=== PATIENT | female | born 1960 | race Caucasian/White ===

== ENCOUNTER → 2023-12-03 12:05 | Outpatient (REF) | payer MEDICARE, BC, SELFPAY | LOC: RAD 12:05 | PROVIDERS: ATTENDING PHYSICIAN Nurse Practitioner Primary Care | DX: J40 Bronchitis, not specified as acute or chronic (principal); J45.31 Mild persistent asthma with (acute) exacerbation | CPT/HCPCS: 71046 ==

== ENCOUNTER → 2023-12-07 08:12 | Outpatient (REF) | payer MEDICARE, BC, SELFPAY | LOC: RAD 08:12 | PROVIDERS: ATTENDING PHYSICIAN Nurse Practitioner Primary Care; REFERRING PHYSICIAN Otolaryngology Facial Plastic Surgery | DX: J30.89 Other allergic rhinitis (principal); J32.0 Chronic maxillary sinusitis; B02.29 Other postherpetic nervous system involvement | CPT/HCPCS: 70486 ==

== ENCOUNTER → 2023-12-22 08:46 | Outpatient (REF) | payer MEDICARE, BC, SELFPAY | LOC: MRI 3T 08:46 | PROVIDERS: ATTENDING PHYSICIAN Physician Assistant Surgical; FAMILY PHYSICIAN Nurse Practitioner Primary Care | DX: M79.671 Pain in right foot (principal) | CPT/HCPCS: 73718 ==

== ENCOUNTER → 2023-12-25 13:42 | Outpatient (REF) | payer MEDICARE, BC, SELFPAY | LOC: RAD 13:42 | PROVIDERS: ATTENDING PHYSICIAN Nurse Practitioner Primary Care | DX: J45.30 Mild persistent asthma, uncomplicated (principal); F17.210 Nicotine dependence, cigarettes, uncomplicated; M06.9 Rheumatoid arthritis, unspecified; M35.01 Sjogren syndrome with keratoconjunctivitis; R05.3 Chronic cough | CPT/HCPCS: 71260; Q9967 ==

== ENCOUNTER → 2024-03-12 10:40 | Outpatient (REF) | payer MEDICARE, BC, SELFPAY ==
[2024-03-12 15:23] LABS: ALT (SGPT) 35 U/L (0-35); AST (SGOT) 27 U/L (14-36); Albumin 4.7 g/dl (3.5-5.0); Alkaline Phosphatase 72 U/L (38-126); Blood Urea Nitrogen 14 mg/dl (7-17); Calcium 9.7 mg/dl (8.4-10.2); Carbon Dioxide 27 mmol/L (22-30); Chloride 103 mmol/L (98-107); Glucose 112 mg/dl (70-99); HDL Cholesterol 62 mg/dl; LDL Cholesterol, Calculated 69 mg/dl; Potassium 4.6 mmol/L (3.5-5.1); Sodium 142 mmol/L (135-145); Total Bilirubin 0.3 mg/dl (0.2-1.3); Total Cholesterol 151 mg/dl (50-199); Total Protein 7.2 g/dl (6.3-8.2); Triglyceride 100 mg/dl (10-149); Very Low Density Lipoprotein 20 mg/dl (0-30); eGFR > 60.00
[2024-03-12 15:35] LABS: % Basophils 0.5 % (0-2); % Eosinophils 0.3 % (0-6); % Immature Granulocytes 0.1 % (0-0.5); % Lymphocytes 30.9 % (20.5-51.1); % Monocytes 6.8 % (1.7-9.3); % Neutrophils 61.4 % (42.2-75.2); Absolute Lymphocytes 2.3 10^3/uL (1.2-3.4); Absolute Monocytes 0.5 10^3/uL (0.1-0.6); Absolute Neutrophils 4.5 10^3/uL (1.4-6.5); Hematocrit 39.6 % (37.0-47.0); Hemoglobin 13.9 g/dL (12.0-16.0); Mean Corp Hgb Conc. 35.1 g/dL (33.0-37.0); Mean Corpuscular Hgb 31.9 pg (27.0-31.0); Mean Corpuscular Volume 90.8 fL (81.0-99.0); Mean Platelet Volume 10.1 fL (7.4-10.4); Nucleated Red Blood Cells % 0 %; Platelet Count 234 10^3/uL (130-400); Red Blood Cell Count 4.36 10^6/uL (4.20-5.40); Red Cell Dist. Width 11.9 % (11.5-14.5); White Blood Cell Count 7.3 10^3/uL (4.8-10.8)
[2024-03-12 15:38] LABS: Vitamin D, 25-OH*** 46.7 ng/mL (30-80)
[2024-03-12 15:51] LABS: TSH Reflex To Free T4 0.59 uIU/ml (0.47-4.68)
[2024-03-13 10:07] LABS: Glycohemoglobin (HgbA1c) 6.1 % (4.0-5.6)
== END ==
LOC: HWLAB 10:40
PROVIDERS: ATTENDING PHYSICIAN Otolaryngology Otolaryngology/Facial Plastic Surgery; FAMILY PHYSICIAN Nurse Practitioner Primary Care
DX: Z01.818 Encounter for other preprocedural examination (principal); E11.65 Type 2 diabetes mellitus with hyperglycemia; E78.2 Mixed hyperlipidemia; E55.9 Vitamin D deficiency, unspecified; E03.8 Other specified hypothyroidism; J30.89 Other allergic rhinitis
CPT/HCPCS: 36415; 80053; 80061; 82306; 83036; 84443; 85025; 93005

== ENCOUNTER 2024-04-09 14:45 | Emergency (ER) | payer MEDICARE, BC, SELFPAY ==
[2024-04-09] VITALS (7 sets, daily range): BP systolic 120–134; BP diastolic 63–78; BMI 26.5
--- NOTE | 2024-04-09 15:29 | ED.GENMED ---
History of Present Illness
General
Chief Complaint: Abdominal Symptoms
Source: patient
Exam Limitations: none
Time Seen by Provider: 04/09/24 15:02
Nursing documentation reviewed up to this point in time: agreed with
History of Present Illness
History of Present Illness:
Patient to ED with complaint of diffuse abd. pain, R>L, constipation. States she takes Mag.Citrate and fiber daily since being placed on Monjero months ago. States she has not had a BM in 4 days despite taking extra doses. Gave self fleets this
AM, no results, no even liquid from enema. Advised by PCP to come to ED. Denies fever/chills, recent illness. No vomiting, +nausea. No history of obstructions. Brought to ED by spouse for eval
Past History
Past History
ED Past Medical History: Asthma, Cancer (Cervical cancer), Hypercholesterolemia, NIDDM, Psychiatric (Anxiety) and Other (Neuropathy, sciatica)
ED Past Surgical History: Appendectomy, , Gynecological (Hysterectomy) and Other (Vein stripping)
Social History
Tobacco: Non-smoker
Alcohol: Occasional
Personal:
Living: with family
Employment: Not employed (Homemaker)
Family History
Family History: Other (Noncontributory)
Review of Systems
Review of Systems
Allergies reviewed?: Yes
All Other Systems: ROS reviewed and negative except as documented in HPI and ROS
Constitutional: Reports no symptoms
EENT: Reports no symptoms
Respiratory: Reports no symptoms
ABD/GI: Reports abdominal pain (diffuse), nausea and constipated
: Reports no symptoms
Musculoskeletal: Reports no symptoms
Skin: Reports no symptoms
Neurological: Reports no symptoms
Psychiatric: Reports no symptoms
Phy Exam
General Physical Exam
General Presentation: well appearing and no apparent distress
General age: appears stated age
General Skin: warm and dry
General Habitus: normal
General Mental: alert
Cardiovascular Exam
Cardiovascular Exam: regular rate/rhythm
Gastrointestinal Exam
Gastrointestinal Exam: soft and no organomegaly
Palpation: generalized: Moderate tenderness
Musculoskeletal Exam
Musculoskeletal Exam: full ROM and neuro vasc intact
Skin Exam
Skin Exam: normal color, warm/dry and no rash
Psychiatric Exam
Psychiatric Exam: normal mood/affect
Course
Orders/Labs/Results
Orders:
Orders
04/09/24 15:28
Abdomen Xray - 1 View [CR Abdomen - 1 View] Urgent
Comment:
Reason For Exam: diffuse pain, constipation
04/09/24 17:23
Complete Blood Count/With Diff Urgent
Comprehensive Metabolic Panel Urgent
Lipase Urgent
Urinalysis Reflex To Culture Urgent
Date Specimen was Collected: 04/09/24
Time Specimen was Collected: 17:10
04/09/24 18:11
CT Abd/pel (oral only)-DH Only Urgent
Comment: pt allergic to iodine, scan oral only per Angelica
Reason For Exam: diffuse abd. pain
Iohexol [Omnipaque] See Protocol PO NOW STA
04/09/24 21:56
Bisacodyl [Dulcolax] 10 mg PO NOW STA
Bisacodyl [Dulcolax] 10 mg PO NOW STA
Abnormal Lab Results
04/09/24
17:23
MCH 31.1 H pg
(27.0-31.0)
Glucose 137 H mg/dl
(70-99)
ALT 37 H U/L
(0-35)
04/09/24 17:23
04/09/24 17:23
Vital Signs
Initial and Last Documented VS:
Initial Vital Signs
Temp Pulse Resp BP Pulse Ox
98.5 F 95 18 126/78 99
04/09/24 14:54 04/09/24 14:54 04/09/24 14:54 04/09/24 14:54 04/09/24 14:54
Last Documented Vital Signs
Temp Pulse Resp BP Pulse Ox
98.5 F 69 18 134/78 99
04/09/24 14:54 04/09/24 22:30 04/09/24 20:00 04/09/24 22:30 04/09/24 22:30
*Radiology
Radiology exam reviewed: radiology read reviewed
*Pulse Oximetry
Patient hypoxic: no
*Critical Care Note
Total Time (30-74mins, 75-104mins- exclusive of procedures): Not Applicable
Update Note
Update Note:
Patient to ED with complaint of abdominal discomfort, feeling of constipation. No BM x 4 days. Takes mag citrate and fiber daily and has been doing so for months, since starting monjero. Afebrile. No n/v. Labs reviewed, no concerning findings.
CT of abdomen shows mild diffuse stoolburden/constipation. Will give dulcolax PO now and repeat in AM. Discharge home with instructions to f/u with PCP.
ED Attending Note
-
Portions of this chart may have been created with voice recognition software.� Occasional wrong word or��sound alike� substitutions may have occurred due to the inherent limitations of voice recognition software.
Discharge Plan
Departure
Patient Disposition: Home (Routine Discharge)
Date of Disposition: 04/09/24
Time of Disposition: 21:57
Patient with high blood pressure during this ER visit?: No
Condition: Good
Covid-19: Not Applicable
Discharge Problem:
Constipation
Instructions: Constipation, Adult (DC), Abdominal Pain
Prescriptions:
No Action
diclofenac sodium 75 mg tablet,delayed release (DR/EC)
75 mg PO BID PRN (Reason: pain) Qty: 30 0RF
Referrals:
Ivis Steen CRNP [Family Provider] -
Activity Restrictions/Additional Instructions:
Return to the emergency department for any changes in/worsening of your symptoms
Interventions
Interventions:
*Risk Screen - Suicide Last Done: 04/09/24 15:00
*General Assessment Last Done: 04/09/24 15:37
*Neglect/Abuse Screening Last Done: 04/09/24 15:37
ED- Fall Risk Assessment Last Done: 04/09/24 15:37
*ED COVID-19 Vaccine History Last Done: 04/09/24 15:37
*Nursing Disposition Last Done: 04/09/24 22:33
JE-Efiezf-Nukknvaiwg Assessment Last Done: 04/09/24 15:37
Discharge Date and Time
Discharge Date/Time: 04/09/24 22:39
Print Language: PASHTO
--- NOTE | 2024-04-09 17:28 | EDRN ---
Pt states pain is increasing more often at this time from 6-10/10 w/ increased cramping.
[2024-04-09 17:35] LABS: Urine Albumin Negative (Neg - Trace); Urine Bilirubin Negative (Negative); Urine Character Clear (Clear); Urine Color Straw; Urine Glucose Negative (Negative); Urine Ketone Negative (Negative); Urine Leukocyte Negative (Negative); Urine Nitrite Negative (Negative); Urine Occult Blood Negative (Negative); Urine Specific Gravity 1.015 (<1.030); Urine Urobilinogen Negative (Neg - 1+)
[2024-04-09 17:36] LABS: % Basophils 0.5 % (0-2); % Eosinophils 0.3 % (0-6); % Immature Granulocytes 0.2 % (0-0.5); % Monocytes 5.9 % (1.7-9.3); % Neutrophils 59.1 % (42.2-75.2); Absolute Lymphocytes 2.9 10^3/uL (1.2-3.4); Absolute Monocytes 0.5 10^3/uL (0.1-0.6); Absolute Neutrophils 5.1 10^3/uL (1.4-6.5); Hematocrit 38.7 % (37.0-47.0); Hemoglobin 13.3 g/dL (12.0-16.0); Mean Corp Hgb Conc. 34.4 g/dL (33.0-37.0); Mean Corpuscular Hgb 31.1 pg (27.0-31.0); Mean Corpuscular Volume 90.6 fL (81.0-99.0); Mean Platelet Volume 8.8 fL (7.4-10.4); Nucleated Red Blood Cells % 0 %; Platelet Count 303 10^3/uL (130-400); Red Blood Cell Count 4.27 10^6/uL (4.20-5.40); Red Cell Dist. Width 11.9 % (11.5-14.5); White Blood Cell Count 8.6 10^3/uL (4.8-10.8)
[2024-04-09 17:48] LABS: ALT (SGPT) 37 U/L (0-35); AST (SGOT) 26 U/L (14-36); Albumin 4.6 g/dl (3.5-5.0); Alkaline Phosphatase 80 U/L (38-126); Blood Urea Nitrogen 16 mg/dl (7-17); Calcium 9.9 mg/dl (8.4-10.2); Carbon Dioxide 27 mmol/L (22-30); Chloride 101 mmol/L (98-107); Estimated Creatinine Clearance 92 ml/min; Glucose 137 mg/dl (70-99); Lipase 121 U/L (23-300); Sodium 139 mmol/L (135-145); Total Bilirubin 0.4 mg/dl (0.2-1.3); eGFR > 60.00
[2024-04-09] MEDS: OMNIPAQUE 50 ML PO (18:50)
--- NOTE | 2024-04-09 19:04 | EDRN ---
1800 documentation of vital signs and update done by Clifford Magallon RN.
[2024-04-09] MEDS: DULCOLAX 10 MG PO ×2 (22:07→22:08)
== END 2024-04-09 22:39 | disposition home or self-care (01) ==
LOC: EMR 14:45
PROVIDERS: Nurse Practitioner; EMERGENCY PHYSICIAN Emergency Medicine; FAMILY PHYSICIAN Nurse Practitioner Primary Care
DX: K59.00 Constipation, unspecified (principal); R10.84 Generalized abdominal pain; J45.909 Unspecified asthma, uncomplicated; E78.00 Pure hypercholesterolemia, unspecified; E11.9 Type 2 diabetes mellitus without complications; Z85.41 Personal history of malignant neoplasm of cervix uteri; Z90.49 Acquired absence of other specified parts of digestive tract; Z90.710 Acquired absence of both cervix and uterus
CPT/HCPCS: 99284; 74018; 74176; 80053; 81003; 83690; 85025

== ENCOUNTER 2024-04-10 12:37 | Emergency (ER) | payer MEDICARE, BC, SELFPAY ==
[2024-04-10] VITALS (7 sets, daily range): BP systolic 110–130; BP diastolic 61–72; BMI 26.3
--- NOTE | 2024-04-10 15:50 | ED.GENMED ---
History of Present Illness
General
Chief Complaint: Bowel Problem
Time Seen by Provider: 04/10/24 15:25
Past History
Past History
ED Past Medical History: Asthma, Cancer (Cervical cancer), Hypercholesterolemia, NIDDM, Psychiatric (Anxiety) and Other (Neuropathy, sciatica)
ED Past Surgical History: Appendectomy, , Gynecological (Hysterectomy) and Other (Vein stripping)
Social History
Tobacco: Non-smoker
Alcohol: Occasional
Personal:
Living: with family
Employment: Not employed (Homemaker)
Family History
Family History: Other (Noncontributory)
Course
Vital Signs
Initial and Last Documented VS:
Initial Vital Signs
Temp Pulse Resp BP Pulse Ox
36.9 C 111 20 115/72 98
04/10/24 12:38 04/10/24 12:38 04/10/24 12:38 04/10/24 12:38 04/10/24 12:38
Last Documented Vital Signs
Temp Pulse Resp BP Pulse Ox
36.9 C 82 18 110/67 100
04/10/24 12:38 04/10/24 15:07 04/10/24 15:07 04/10/24 15:06 04/10/24 15:15
ED Attending Note
-
Portions of this chart may have been created with voice recognition software.� Occasional wrong word or��sound alike� substitutions may have occurred due to the inherent limitations of voice recognition software.
Discharge Plan
Departure
Prescriptions:
No Action
diclofenac sodium 75 mg tablet,delayed release (DR/EC)
75 mg PO BID PRN (Reason: pain) Qty: 30 0RF
Referrals:
Ivis Steen CRNP [Family Provider] -
Interventions
Interventions:
*Risk Screen - Suicide Last Done: 04/10/24 15:04
*General Assessment Last Done: 04/10/24 12:38
*Neglect/Abuse Screening Last Done: 04/10/24 15:04
ED- Fall Risk Assessment Last Done: 04/10/24 15:07
*ED COVID-19 Vaccine History Last Done: 04/10/24 15:04
DY-Llcazw-Xkmxhjrghn Assessment Last Done: 04/10/24 15:04
Discharge Date and Time
Print Language: BENGALI
--- NOTE | 2024-04-10 16:04 | ED.GENMED ---
History of Present Illness
<Geovani Larios, DO - Last Filed: 04/10/24 16:08>
General
Chief Complaint: Bowel Problem
Time Seen by Provider: 04/10/24 15:25
<Brianna Gonzalez MD, Resident - Last Filed: 04/10/24 21:28>
History of Present Illness
History of Present Illness:
63 y/o female with pmhx of NIDDM, remote hx of cervical cancer s/p hysterectomy and HLP presenting to the ED with constipation and abdominal pain. Patient was seen here in the ED yesterday for constipation, CT showed mild stool burden c/w
constipation. Patient took Dulcolax this morning but has not had any BM or gas passage since Saturday. Is taking Magnesium citrate and fiber daily since she has been on Mounjaro (started in November 2022). Also used a fleet enema around noon yesterday
without any relief. Today patient has been nauseous and states has diffuse abdominal pain, aggravated by changing position. Denies fever, vomiting.
Past History
<Geovani Larios, DO - Last Filed: 04/10/24 16:08>
Past History
ED Past Medical History: Asthma, Cancer (Cervical cancer), Hypercholesterolemia, NIDDM, Psychiatric (Anxiety) and Other (Neuropathy, sciatica)
ED Past Surgical History: Appendectomy, , Gynecological (Hysterectomy) and Other (Vein stripping)
Social History
Tobacco: Non-smoker
Alcohol: Occasional
Personal:
Living: with family
Employment: Not employed (Homemaker)
Family History
Family History: Other (Noncontributory)
Review of Systems
<Brianna Gonzalez MD, Resident - Last Filed: 04/10/24 21:28>
Review of Systems
Constitutional: Reports no symptoms
EENT: Reports no symptoms
Respiratory: Reports no symptoms
Cardiac: Reports no symptoms
ABD/GI: Reports abdominal pain, nausea and constipated
: Reports no symptoms
Musculoskeletal: Reports no symptoms
Skin: Reports no symptoms
Neurological: Reports no symptoms
Endocrine: Reports no symptoms
Hematologic/Lymphatic: Reports no symptoms
Psychiatric: Reports no symptoms
Phy Exam
<Brianna Gonzalez MD, Resident - Last Filed: 04/10/24 21:28>
Physical Exam
Physical Exam:
GENERAL: Alert, awake, patient is lying on bed and appears in discomfort.
EYE: pupils equal and reactive.
NECK: Supple, no significant adenopathy.
ENT: o/p clr, mmm.
CARDIAC: Regular rate and rhythm.
LUNGS: Clear breath sounds bilaterally, no acute respiratory distress, no wheezes/rales/rhonchi
ABDOMEN: Soft, diffuse abdominal tenderness, no r/g, no cvat. No stool in rectal vault.
NEUROLOGICAL: Alert and oriented, no focal neuro deficits.
SKIN: Warm and dry, skin intact.
MUSCULOSKELETAL: No edema, well perfused.
PSYCH: Normal and appropriate interaction.
Course
<Geovani Larios, DO - Last Filed: 04/10/24 16:08>
Orders/Labs/Results
Orders:
Orders
04/10/24 16:04
CT Abd/pelvis W Iv Cont Urgent
Comment: Does not have iodine allergy
Reason For Exam: Constipation, worsening abdominal pain
04/10/24 16:17
0.9% Sodium Chloride 1000 ml [Nss] 1,000 ml IV BOLUS
Acetaminophen [Tylenol] 1,000 mg PO NOW STA
04/10/24 16:26
Complete Blood Count/With Diff Urgent
Comprehensive Metabolic Panel Urgent
Lipase Urgent
Abnormal Lab Results
04/10/24
16:26
MCH 31.3 H pg
(27.0-31.0)
Glucose 105 H mg/dl
(70-99)
ALT 40 H U/L
(0-35)
Albumin 5.3 H g/dl
(3.5-5.0)
04/10/24 16:26
04/10/24 16:26
Vital Signs
Initial and Last Documented VS:
Initial Vital Signs
Temp Pulse Resp BP Pulse Ox
98.4 F 111 20 115/72 98
04/10/24 12:38 04/10/24 12:38 04/10/24 12:38 04/10/24 12:38 04/10/24 12:38
Last Documented Vital Signs
Temp Pulse Resp BP Pulse Ox
98.4 F 75 18 130/64 96
04/10/24 12:38 04/10/24 21:22 04/10/24 21:22 04/10/24 21:22 04/10/24 21:22
<Brianna Gonzalez MD, Resident - Last Filed: 04/10/24 21:28>
Orders/Labs/Results
Orders:
Orders
04/10/24 16:04
CT Abd/pelvis W Iv Cont Urgent
Comment: Does not have iodine allergy
Reason For Exam: Constipation, worsening abdominal pain
04/10/24 16:17
0.9% Sodium Chloride 1000 ml [Nss] 1,000 ml IV BOLUS
Acetaminophen [Tylenol] 1,000 mg PO NOW STA
04/10/24 16:26
Complete Blood Count/With Diff Urgent
Comprehensive Metabolic Panel Urgent
Lipase Urgent
Abnormal Lab Results
04/10/24
16:26
MCH 31.3 H pg
(27.0-31.0)
Glucose 105 H mg/dl
(70-99)
ALT 40 H U/L
(0-35)
Albumin 5.3 H g/dl
(3.5-5.0)
04/10/24 16:26
04/10/24 16:26
Vital Signs
Initial and Last Documented VS:
Initial Vital Signs
Temp Pulse Resp BP Pulse Ox
98.4 F 111 20 115/72 98
04/10/24 12:38 04/10/24 12:38 04/10/24 12:38 04/10/24 12:38 04/10/24 12:38
Last Documented Vital Signs
Temp Pulse Resp BP Pulse Ox
98.4 F 75 18 130/64 96
04/10/24 12:38 04/10/24 21:22 04/10/24 21:22 04/10/24 21:22 04/10/24 21:22
<Brianna Gonzalez MD, Resident - Last Filed: 04/10/24 21:28>
*Critical Care Note
Total Time (30-74mins, 75-104mins- exclusive of procedures): Not Applicable
ED Attending Note
<Geovani Larios, - Last Filed: 04/10/24 16:08>
ED Attending Note
Patient seen and examined by attending physician: Yes
I performed a history and physical exam of patient and discussed management with resident, I reviewed resident's note and agree with documented findings and plan of care.: Yes
ED Attending Note:
I evaluated patient at bedside. Yesterday, the patient had a normal white blood cell count. Today, the pain worsens. She is diffusely tender. She has an empty rectal vault. She adamantly denies any allergy in the past related to iodine. She
does have a shellfish allergy and was only told to tell people that she has an iodine allergy based on the shellfish allergy.
-
Portions of this chart may have been created with voice recognition software.� Occasional wrong word or��sound alike� substitutions may have occurred due to the inherent limitations of voice recognition software.
Discharge Plan
Departure
Patient Disposition: Home (Routine Discharge)
Date of Disposition: 04/10/24
Time of Disposition: 21:05
Patient with high blood pressure during this ER visit?: No
Condition: Fair
Discharge Problem:
Constipation
Instructions: Constipation, Adult (DC), Abdominal Pain
Prescriptions:
New
lactulose 20 gram/30 mL solution
20 g PO BID Qty: 150 0RF
polyethylene glycol 3350 [Miralax] 17 gram/dose powder
4 g PO DAILY Qty: 119 0RF
No Action
diclofenac sodium 75 mg tablet,delayed release (DR/EC)
75 mg PO BID PRN (Reason: pain) Qty: 30 0RF
Referrals:
Ivis Steen CRNP [Family Provider] -
Activity Restrictions/Additional Instructions:
I recommend that you try pnxx-hhm-skvspob MiraLAX. I am sending a prescription for lactulose for a couple days of something else to try. Basic blood work including white blood cell count and electrolytes are normal. Abdomen CT shows small amount
of stool within the colon without evidence for bowel obstruction.
Interventions
Interventions:
*Risk Screen - Suicide Last Done: 04/10/24 15:04
*General Assessment Last Done: 04/10/24 12:38
*Neglect/Abuse Screening Last Done: 04/10/24 15:04
ED- Fall Risk Assessment Last Done: 04/10/24 15:07
*ED COVID-19 Vaccine History Last Done: 04/10/24 15:04
RK-Bzxacd-Dkaesysulz Assessment Last Done: 04/10/24 15:04
Discharge Date and Time
Print Language: GAMBIAN
[2024-04-10] MEDS: NSS 1000 IV (16:24)
[2024-04-10] MEDS: TYLENOL 1000 MG PO (16:24)
[2024-04-10 16:41] LABS: % Basophils 0.5 % (0-2); % Eosinophils 0.1 % (0-6); % Immature Granulocytes 0.3 % (0-0.5); % Lymphocytes 24.5 % (20.5-51.1); % Monocytes 6.2 % (1.7-9.3); % Neutrophils 68.4 % (42.2-75.2); Absolute Lymphocytes 2.2 10^3/uL (1.2-3.4); Absolute Monocytes 0.6 10^3/uL (0.1-0.6); Hematocrit 43.4 % (37.0-47.0); Mean Corp Hgb Conc. 34.6 g/dL (33.0-37.0); Mean Corpuscular Hgb 31.3 pg (27.0-31.0); Mean Corpuscular Volume 90.4 fL (81.0-99.0); Mean Platelet Volume 8.9 fL (7.4-10.4); Nucleated Red Blood Cells % 0 %; Platelet Count 356 10^3/uL (130-400); Red Cell Dist. Width 11.8 % (11.5-14.5); White Blood Cell Count 8.8 10^3/uL (4.8-10.8)
[2024-04-10 16:50] LABS: ALT (SGPT) 40 U/L (0-35); AST (SGOT) 29 U/L (14-36); Albumin 5.3 g/dl (3.5-5.0); Alkaline Phosphatase 93 U/L (38-126); Blood Urea Nitrogen 16 mg/dl (7-17); Carbon Dioxide 27 mmol/L (22-30); Chloride 99 mmol/L (98-107); Estimated Creatinine Clearance 92 ml/min; Glucose 105 mg/dl (70-99); Potassium 4.1 mmol/L (3.5-5.1); Sodium 137 mmol/L (135-145); Total Bilirubin 0.9 mg/dl (0.2-1.3); eGFR > 60.00
[2024-04-10 16:51] LABS: Lipase 110 U/L (23-300)
== END 2024-04-10 21:33 | disposition home or self-care (01) ==
LOC: EMR 12:37
PROVIDERS: EMERGENCY PHYSICIAN Emergency Medicine; FAMILY PHYSICIAN Nurse Practitioner Primary Care
DX: K59.00 Constipation, unspecified (principal); E11.9 Type 2 diabetes mellitus without complications; E78.00 Pure hypercholesterolemia, unspecified; J45.909 Unspecified asthma, uncomplicated; Z79.85 Long-term (current) use of injectable non-insulin antidiabetic drugs; Z85.41 Personal history of malignant neoplasm of cervix uteri; Z90.710 Acquired absence of both cervix and uterus; Z90.49 Acquired absence of other specified parts of digestive tract
CPT/HCPCS: 99284; 96360; 74177; 80053; 83690; 85025; Q9967

== ENCOUNTER → 2024-09-30 08:21 | Outpatient (REF) | payer MEDICARE, BC, SELFPAY | LOC: RCS 08:21 | PROVIDERS: ATTENDING PHYSICIAN Nurse Practitioner Primary Care | DX: R00.2 Palpitations (principal) | CPT/HCPCS: 93225; 93226 ==

== ENCOUNTER → 2024-10-02 09:37 | Outpatient (REF) | payer MEDICARE, BC, SELFPAY | LOC: HWRCS 09:37 | PROVIDERS: ATTENDING PHYSICIAN Nurse Practitioner Primary Care | DX: R93.1 Abnormal findings on diagnostic imaging of heart and coronary circulation (principal); R00.2 Palpitations | CPT/HCPCS: 93005; 93306 ==

== ENCOUNTER → 2024-12-25 08:25 | Outpatient (REF) | payer MEDICARE, BC, SELFPAY | LOC: HWRAD 08:25 | PROVIDERS: ATTENDING PHYSICIAN Nurse Practitioner Primary Care | DX: F17.210 Nicotine dependence, cigarettes, uncomplicated (principal) | CPT/HCPCS: 71271 ==

== ENCOUNTER 2025-04-10 17:11 | Emergency (ER) | payer MEDICARE, BC, SELFPAY ==
[2025-04-10 17:15] VITALS: BP 142/76
[2025-04-10 17:18] LABS: Glucose - Point of Care 375 mg/dl (70-99)
[2025-04-10 18:21] LABS: Hematocrit 36.4 % (37.0-47.0); Hemoglobin 12.6 g/dL (12.0-16.0); Mean Corp Hgb Conc. 34.6 g/dL (33.0-37.0); Mean Corpuscular Volume 86.5 fL (81.0-99.0); Nucleated Red Blood Cells % 0 %; Platelet Count 316 10^3/uL (130-400); Red Cell Dist. Width 12.6 % (11.5-14.5)
[2025-04-10 18:37] LABS: ALT (SGPT) 32 U/L (0-35); AST (SGOT) 26 U/L (14-36); Albumin 4.3 g/dl (3.5-5.0); Alkaline Phosphatase 86 U/L (38-126); Blood Urea Nitrogen 24 mg/dl (7-17); Calcium 9.3 mg/dl (8.4-10.2); Carbon Dioxide 25 mmol/L (22-30); Chloride 102 mmol/L (98-107); Glucose 336 mg/dl (70-99); Potassium 4.6 mmol/L (3.5-5.1); Sodium 134 mmol/L (135-145); Total Protein 6.7 g/dl (6.3-8.2); eGFR > 60.00
[2025-04-10] MEDS: NOVOLOG vial 6 UNITS SC (19:27)
--- NOTE | 2025-04-10 19:39 | EDRN ---
report received, introduced myself to patient who reports her headache is better, call crowder in reach, patient resting watching tv
[2025-04-10 20:12] LABS: Glucose - Point of Care 247 mg/dl (70-99)
--- NOTE | 2025-04-10 20:20 | ED.GENMED ---
History of Present Illness
General
Chief Complaint: Blood Sugar Problem
Time Seen by Provider: 04/10/25 18:16
History of Present Illness
History of Present Illness:
64-year-old female past medical history of type 2 diabetes and recent steroid injections in her neck for arthritis who presents complaining of blood sugars over 300 for 24 hours. States that her sugars have been elevated since her steroid injection
several days ago but when they remained elevated and she was unable to speak with her PCP due to weekend she wanted to be checked out. Reports excessive thirst and headache.
Past History
Past History
ED Past Medical History: Asthma, Cancer (Cervical cancer), Hypercholesterolemia, NIDDM, Psychiatric (Anxiety) and Other (Neuropathy, sciatica)
ED Past Surgical History: Appendectomy, , Gynecological (Hysterectomy) and Other (Vein stripping)
Social History
Tobacco: Non-smoker
Alcohol: Occasional
Personal:
Living: with family
Employment: Not employed (Homemaker)
Family History
Family History: Other (Noncontributory)
Phy Exam
General Physical Exam
General Presentation: well appearing and no apparent distress
General Skin: warm and dry
General Habitus: normal
General Mental: alert
General Hydration: appears well hydrated
ENT Exam
ENT Exam: EOMI, pharynx normal, neck supple and normocephalic
Eye Exam
Eye Exam: PERRL, cornea clear and conjunctiva normal
Cardiovascular Exam
Cardiovascular Exam: regular rate/rhythm, no edema, no murmur and normal peripheral pulses
Pulmonary Exam
Pulmonary Exam: lungs clear, no respiratory distress, no rales, no crackles, no rhonchi, no stridor, no wheezing and no cough
Gastrointestinal Exam
Gastrointestinal Exam: normal bowel sounds, non tender, soft, no organomegaly, no pulsatile mass and non distended
Neurological Exam
Neurological Exam: alert, oriented x3, no motor deficits and speech normal
Musculoskeletal Exam
Musculoskeletal Exam: full ROM and no edema
Skin Exam
Skin Exam: normal color, warm/dry, no rash and no petechia
Psychiatric Exam
Psychiatric Exam: normal mood/affect
Course
Orders/Labs/Results
Orders:
Orders
04/10/25 18:14
Complete Blood Count/With Diff Urgent
Comprehensive Metabolic Panel Urgent
04/10/25 19:14
Insulin Aspart [NOVOLOG vial] 6 units SC NOW STA
Abnormal Lab Results
04/10/25 04/10/25 04/10/25
17:17 18:14 20:11
Hct 36.4 L %
(37.0-47.0)
Abs Immat Gran (auto) 0.1 H 10^3/uL
(0-0.05)
Absolute Monos (auto) 0.9 H 10^3/uL
(0.1-0.6)
Immature Gran % 0.7 H %
(0-0.5)
Lymphocytes % 16.6 L %
(20.5-51.1)
Monocytes % 10.1 H %
(1.7-9.3)
Sodium 134 L mmol/L
(135-145)
BUN 24 H mg/dl
(7-17)
Glucose 336 H mg/dl
(70-99)
POC Glucose 375 H mg/dl 247 H mg/dl
(70-99) (70-99)
04/10/25 18:14
04/10/25 18:14
Vital Signs
Initial and Last Documented VS:
Initial Vital Signs
Temp Pulse Resp BP Pulse Ox
36.8 C 83 16 142/76 97
04/10/25 17:15 04/10/25 17:15 04/10/25 17:15 04/10/25 17:15 04/10/25 17:15
Last Documented Vital Signs
Temp Pulse Resp BP Pulse Ox
36.8 C 83 16 142/76 97
04/10/25 17:15 04/10/25 17:15 04/10/25 18:15 04/10/25 17:15 04/10/25 17:15
MDM/Problems Addressed
Differential Diagnosis Includes:
Blood sugar 375 on arrival. Patient showed me her continuous monitor log that shows blood sugars have been well over 300 for the last 24 hours. She was given 6 units of subcu insulin with improvement in her blood sugar to 247. Also given a liter
bolus. She reports that she is feeling much better and headache and thirst have resolved. Discussed adding an oral antihyperglycemic to her regimen until she can follow-up with her primary care doctor but she does not wish to start any new
medications. She will continue to follow her blood sugars at home and follow-up with her primary care physician on Saturday. Return precautions discussed.
*Pulse Oximetry
SaO2: 97
Oxygen Mode of Delivery: Room air
Patient hypoxic: no
*Critical Care Note
Total Time (30-74mins, 75-104mins- exclusive of procedures): Not Applicable
ED Attending Note
-
Portions of this chart may have been created with voice recognition software.� Occasional wrong word or��sound alike� substitutions may have occurred due to the inherent limitations of voice recognition software.
Discharge Plan
Departure
Prescriptions:
No Action
diclofenac sodium 75 mg tablet,delayed release (DR/EC)
75 mg PO BID PRN (Reason: pain) Qty: 30 0RF
lactulose 20 gram/30 mL solution
20 g PO BID Qty: 150 0RF
polyethylene glycol 3350 [Miralax] 17 gram/dose powder
4 g PO DAILY Qty: 119 0RF
Referrals:
Ivis Steen CRNP [Family Provider, Internal Medicine]
Interventions
Interventions:
*Risk Screen - Suicide Last Done: 04/10/25 17:15
*General Assessment Last Done: 04/10/25 17:15
*Neglect/Abuse Screening Last Done: 04/10/25 17:15
*ED COVID-19 Vaccine History Last Done: 04/10/25 17:36
*ED Influenza Vaccine History Last Done: 04/10/25 17:36
[facility] Fall Risk Assessment Tool Last Done: 04/10/25 17:36
ED- Neurological Assessment Last Done: 04/10/25 17:36
Discharge Date and Time
Print Language: MONGOLIAN
== END 2025-04-10 21:18 | disposition home or self-care (01) ==
LOC: EMR 17:11
PROVIDERS: EMERGENCY PHYSICIAN Student in an Organized Health Care Education/Training Program; FAMILY PHYSICIAN Nurse Practitioner Primary Care
DX: E11.65 Type 2 diabetes mellitus with hyperglycemia (principal); E11.40 Type 2 diabetes mellitus with diabetic neuropathy, unspecified; E78.00 Pure hypercholesterolemia, unspecified; J45.909 Unspecified asthma, uncomplicated; M47.812 Spondylosis without myelopathy or radiculopathy, cervical region; Z79.84 Long term (current) use of oral hypoglycemic drugs; Z85.41 Personal history of malignant neoplasm of cervix uteri
CPT/HCPCS: 99284; 96372; 80053; 82962; 85025